=== PATIENT | male | born 1995 | race African-American/Black ===

== ENCOUNTER 2017-01-26 09:31 | Emergency (ER) | payer OTHER ==
[~2017-01-26] VITALS: Ht 175.3 cm; Wt 87.0 kg
[2017-01-26] MEDS ORDERED: INSU3INS6 SQ (09:41)
[2017-01-26] MEDS ORDERED: METF500T4 PO (09:41)
[2017-01-26 11:50] VITALS: BP 135/88
== END 2017-01-26 12:15 | disposition home or self-care (01) ==
LOC: ER 10:12
DX: R51 Headache (principal); E11.9 Type 2 diabetes mellitus without complications; Z79.4 Long term (current) use of insulin; V89.2XXA Person injured in unspecified motor-vehicle accident, traffic, initial encounter; Y93.89 Activity, other specified; Y99.8 Other external cause status; Y92.89 Other specified places as the place of occurrence of the external cause
CPT/HCPCS: 99283; Z7610